=== PATIENT | female | born 1995 | race Caucasian/White ===

== ENCOUNTER 2022-06-01 14:21 | Inpatient (IN) | payer BC, OTHER, SELFPAY ==
[2022-06-01] VITALS (91 sets, daily range): BP systolic 104–159; BP diastolic 53–119; PULSE 69–132; TEMP 36.2–36.7; O2SAT 97–100; BMI 34.8
--- OUTSIDE RECORDS SUMMARY | 2022-06-01 14:48 | XMS_ITS ---
Author Name Filler Shredder Helper Address [address] [place] [address] Phone Organization [facility] Address [address] [place] [address] Phone Care Team Providers Care Coping Machine Assembler Name Role Phone JIMI WADE, KRISTINE Juarez Unavailable [phone] CJ WADE, KRISTA Wade Primary Care Provider [phone] Problems Includes: Active, inactive, and resolved Problems All Visits Onset Date - Time Resolved Date - Time Provider Condition Status Depression 08/15/2019 - 12:00AM PERLA MARTINEZ NP- Active Plan of Treatment Findings Encounter Date Ordered Clinical summary pro vided to patient WELL WOMAN - ESTABLISHED PT with PERLA MARTINEZ NP-BC 12/31/2020 Ordered Clinical summary pro vided to patient TUNNEL HEADING SUPERVISOR EXAM with PERLA MARTINEZ WHNP-BC 08/15/2019 Ordered Clinical summary pro vided to patient TUNNEL HEADING SUPERVISOR EXAM with PERLA MARTINEZ WHNP-BC 07/04/2018 Ordered Clinical summary pro vided to patient TUNNEL HEADING SUPERVISOR EXAM with PERLA MARTINEZ WHNP-BC 05/07/2017 Ordered Clinical summary pro vided to patient ANNUAL WELL WOMEN EXAM with PERLA MARTINEZ WHNP-BC 05/04/2016 Ordered Clinical summary pro vided to patient TUNNEL HEADING SUPERVISOR EXAM with PERLA MARTINEZ NP-BC 03/31/2015 O
--- OUTSIDE RECORDS SUMMARY | 2022-06-01 14:48 | XMS_ITS | Clinical Summary ---
Author Name Hand Cell Tuber Address [address] [place] [address] Phone Organization [facility] Address [address] [place] [address] Phone Care Team Providers Care Master Data Analyst Name Role Phone JIMI WADE, KRISTINE C Unavailable [phone] CJ WADE, KRISTA Wade Primary Care Provider [phone] Reason for Visit and Chief Complaint gynecologic annual exam - The Chief Complaint is: Annual just ctng Problems Includes: Problems addressed during this encounter and other active Problems All Visits Onset Date - Time Resolved Date - Time Provider Condition Status Depression 08/15/2019 - 12:00AM PERLA MARTINEZ [facility] Active Plan of Treatment - Clinical summary provided to patient Assessments Includes: Assessments from this encounter - NORMAL FEMALE EXAM Instructions Includes: Instructions from this encounter Instructions to patient Instructions for patient : B reast Self Exam discussed Safe sex counseling Gardasil information given a nd series encouraged Series completed! Education and Decision Aids were provided during visit for: Patient Education: Daily lynette cium and vitamin D Patient Education: weight be aring exercise Medical Equi
--- OUTSIDE RECORDS SUMMARY | 2022-06-01 14:48 | XMS_ITS | Clinical Summary ---
Author Name Junior Mechanical Engineer Address [address] [place] [address] Phone Organization [facility] Address [address] [place] [address] Phone Care Team Providers Care Combine Operator Name Role Phone JIMI WADE, KRISTINE Juarez Unavailable [phone] CJ WADE, KRISTA Wade Primary Care Provider [phone] Reason for Visit and Chief Complaint * PHONE CALL Problems Includes: Problems addressed during this encounter and other active Problems All Visits Onset Date - Time Resolved Date - Time Provider Condition Status Depression 08/15/2019 - 12:00AM PERLA MARTINEZ [facility] Active Plan of Treatment No Plan of Treatment Recorded Assessments Includes: Assessments from this encounter No Assessments Recorded Medical Equipment - Implanted Devices Includes: Current Devices No Medical Equipment Recorded Medications Includes: Medications discussed during this encounter and other current Medications Current Medications (continue as prescribed) Sertraline HCl 25 MG Oral Tablet 12/31/2020 Provider : Diagnosis: Xanax 0.25MG Oral Tablet 07/04/2018 Provider: Diagnosis: Past Medications on file
--- OUTSIDE RECORDS SUMMARY | 2022-06-01 14:48 | XMS_ITS ---
Care Plan - [facility] Created on: June 01, 2022 CODY DONNELLY : 1995 Sex: Female Author Name Flavor Room Worker Address [address] [place] [address] Phone Organization [facility] Address [address] [place] [address] Phone Care Team Providers Care Supervisor Cd Area Name Role Phone JIMI WADE, KRISTINE C Unavailable [phone] CJ WADE, KRISTA A Primary Care Provider [phone]
--- OUTSIDE RECORDS SUMMARY | 2022-06-01 14:48 | XMS_ITS | Clinical Summary ---
Author Name Trade Economist Address [address] [place] [address] Phone Organization [facility] Address [address] [place] [address] Phone Care Team Providers Care Manager Paper Name Role Phone JIMI WADE, KRISTINE C Unavailable [phone] CJ WADE, KRISTA Wade Primary Care Provider [phone] Reason for Visit and Chief Complaint The Chief Complaint is: WWE, pt stopped control 8 months ag. Pt states for the past 4 months during her ovulation she has really sharp pain in her pelvic area and lower abdominal area of both sides. Pt has low back pain also and says the pain stays until her next cycle. No new partners Problems Includes: Problems addressed during this encounter and other active Problems All Visits Onset Date - Time Resolved Date - Time Provider Condition Status Depression 08/15/2019 - 12:00AM PERLA MARTINEZ [facility]- Active Plan of Treatment - Clinical summary provided to patient Assessments Includes: Assessments from this encounter - NORMAL FEMALE EXAM [Z01.419 - Encounter for gynecological examination (general) (routine) without abnormal findings] - Female pelvic pain [R10.2 - Pelvic and perineal pain] Instructions Includes: Instructions from this encounter Instructions to patient Instructions for patient : B reast Self Exam discussed Return to the clinic if cond ition worsens or new symptoms arise Lose
--- OUTSIDE RECORDS SUMMARY | 2022-06-01 14:48 | XMS_ITS | Clinical Summary ---
Author Name Logistics Service Representative Address [address] [place] [address] Phone Organization [facility] Address [address] [place] [address] Phone Care Team Providers Care Community Health Navigator Name Role Phone JIMI WADE, KRISTINE C Unavailable [phone] CJ WADE, KRISTA Wade Primary Care Provider [phone] Reason for Visit and Chief Complaint SENIOR ENERGY TRADER EXAM Problems Includes: Problems addressed during this encounter and other active Problems All Visits Onset Date - Time Resolved Date - Time Provider Condition Status Depression 08/15/2019 - 12:00AM PERLA MARTINEZ [facility] Active Plan of Treatment No Plan of Treatment Recorded Assessments Includes: Assessments from this encounter No Assessments Recorded Medical Equipment - Implanted Devices Includes: Current Devices No Medical Equipment Recorded Medications Includes: Medications discussed during this encounter and other current Medications Current Medications (continue as prescribed) Sertraline HCl 25 MG Oral Tablet 12/31/2020 Provider : Diagnosis: Xanax 0.25MG Oral Tablet 07/04/2018 Provider: Diagnosis: Medications Administered Includes: Administered Medications from thi
[2022-06-01 15:19] LABS: Basophils Percent Auto 0.3 % (0.2-1.2); Eosinophils Absolute Auto 0.1 K/mm3 (0-0.3); Eosinophils Percent Auto 0.4 % (0-4.4); Hematocrit 33.9 % (37.0-47.0); Hemoglobin 11.3 g/dL (12.0-15.0); Immature Granulocyte Absolute 0.04 K/mm3 (0.00-0.031); Immature Granulocyte Percent A 0.3 % (0-0.5); Lymphocytes Absolute Auto 2.86 K/mm3 (0.9-3.2); Lymphocytes Percent Auto 24.3 % (18.3-44.2); Mean Corpuscular HGB Conc 33.3 g/dl (32-36); Mean Corpuscular Hemoglobin 28.6 pg (26-34); Mean Corpuscular Volume 85.8 fl (80-100); Mean Platelet Volume 11.7 fl (7.4-10.4); Monocytes Absolute Auto 0.8 K/mm3 (0.1-0.6); Monocytes Percent Auto 6.9 % (2.6-8.5); Neutrophils Percent Auto 67.8 % (45.5-73.1); Platelet Count Result 237 k/mm3 (150-375); Red Blood Count 3.95 M/mm3 (4.2-5.4); Red Cell Distribution Width 13.7 % (11.5-14.5); White Blood Count 11.8 K/mm3 (4.5-10.0)
[2022-06-01] MEDS: LACTATED RINGERS 1,000 ML 125 ML IV CONT ×2 (15:25→19:42)
[2022-06-01] MEDS: OXYTOCIN 30 UNITS/NS 500 ML 30 UNITS/500 ML BAG 6 UNITS IV CONT (15:25)
--- NOTE | 2022-06-01 15:33 | LDADM ---
This patient, Silvestre Fisher, was admitted to Labor/Delivery/Recovery 106 on 06/01/22 at 14:21. Plans for labor, pain management and were discussed with patient. Patient/family oriented to hospital policies and general routines including ID bracelet, bed and alarms, visiting hours, pain management, procedures, bathroom and other care routines, personal items, smoking policy, room service/diet and guest tray routines, security routines, and visiting hours. Patient/Family are encouraged to report perceived risks to care and to ask questions if they do not understand what they are told or what they should do. See OBIX for further documentation.
[2022-06-01 15:57] LABS: Rapid Plasma Reagin Non-Reactive (NonReactive)
--- NOTE | 2022-06-01 19:44 | WPDANESEPP ---
Anes - Eval Pre Procedure Procedure: labor epidural Date/Time: 06/01/22 19:44 Surgeon: karin Preop Diagnosis: pain during labor Pre Op Diagnosis: labor Patient Data Age: 26 Gender: F Height: 1.65 m Weight: 95 kg Last Vital Signs Temp 36.6 C 06/01/22 18:01 Pulse 74 06/01/22 19:30 BP 124/65 06/01/22 19:30 O2 Del Method Room Air 06/01/22 15:29 Allergies Allergy/AdvReac Type Severity Reaction Status Date / Time No Known Allergies Allergy Verified 06/01/22 15:40 Home Medications Medication Instructions Recorded Confirmed Type prenat.vits,lynette,qaz-recr-tmpdn 1 tablet PO DAILY 05/22/22 06/01/22 History sertraline 50 mg tablet 75 mg PO DAILY 05/22/22 06/01/22 History Laboratory Tests 06/01/22 06/01/22 06/01/22 15:13 15:13 15:13 WBC 11.8 K/mm3 H K/mm3 (4.5-10.0) RBC 3.95 M/mm3 L M/mm3 (4.2-5.4) Hgb 11.3 g/dL L g/dL (12.0-15.0) Hct 33.9 % L % (37.0-47.0) MCV 85.8 fl fl (80-100) MCH 28.6 pg pg (26-34) MCHC 33.3 g/dl g/dl (32-36) RDW 13.7 % % (11.5-14.5) Plt Count 237 k/mm3 k/mm3 (150-375) MPV 11.7 fl H fl (7.4-10.4) Immature Gran % (Auto) 0.3 % % (0-0.5) Neut % (Auto) 67.8 % % (45.5-73.1) Lymph % (Auto) 24.3 % % (18.3-44.2) Gilmer % (Auto) 6.9 % % (2.6-8.5) Eos % (Auto) 0.4 % % (0-4.4) Baso % (Auto) 0.3 % % (0.2-1.2) Lymph # (Auto) 2.86 K/mm3 K/mm3 (0.9-3.2) Gilmer # (Auto) 0.8 K/mm3 H K/mm3 (0.1-0.6) Eos # (Auto) 0.1 K/mm3 K/mm3 (0-0.3) Baso # (Auto) 0.0 K/mm3 K/mm3 (0.0-0.1) Abs Immat Gran (auto) 0.04 K/mm3 H K/mm3 (0.00-0.031) Absolute Neuts (auto) 8.0 K/mm3 H K/mm3 (1.3-6.7) Absolute Nucleated RBC 0.0 K/mm3 K/mm3 (0.0-0.012) Nucleated RBC % 0.0 % % (0.0-0.2) RPR Non-reactive (NonReactive) Blood Type A Positive Antibody Screen Negative Patient hx anesthesia problems: none Family hx anesthesia problems: none Results Review: All pre-operative results and documents have been reviewed as part of the pre-operative evaluation. [facility] Past Medical History Medical History (Updated 06/01/22 @ 19:44 by Rena Khan CRNA) Depression IUP (intrauterine ), incidental Family History Family History (Updated 05/22/22 @ 15:29 by Victoriano Osorio RN) Grandparent High cholesterol Diabetes mellitus Cancer of kidney Grandparent Alzheimer disease Social History Social History Smoking status: Never smoker Substance use: never Lack of Transportation: No Lack of Food: Never True Current Housing: I Do Not Have Housing Concerned About Future Housing: No Difficulty Paying Gas/Electric Bills: No Difficulty Paying for Meds: No Currently Unemployed: No Education: Associate Degree Difficulty w/ Childcare or Family Care: No Spiritual care concerns: No Exam Day of Procedure 06/01/22 19:44
[2022-06-02] VITALS (35 sets, daily range): BP systolic 119–163; BP diastolic 42–113; PULSE 87–158; RESP 16–18; TEMP 36.6–37.3; O2SAT 98–100
--- NOTE | 2022-06-02 01:47 | PM.OBPRVD ---
OB - Delivery Note Procedure Procedure: Induction method: None Delivery augmentation: Pitocin Delivery monitor: External FHT and Internal Uterine Route of delivery: Prior to decision for section, [facility] labor guidelines were considered and discussed with the patient and staff. Decision made to proceed with the section.: No Episiotomy description: None Laceration Description: Perineal - 1st Degree and Labial Delivery repair: vicryl Quantitative Blood Loss (ml): 175 Anesthesia type: Epidural Disposition: Floor Paulina Baby Date of : 06/02/22 Time of : 01:22 Weeks of gestation at delivery: 37 Weight (pounds): 6 Weight (ounces): 14 score one minute: 7 score five minutes: 9
[2022-06-02] MEDS: IBUPROFEN 600 MG TABLET PO ×2 (08:14→16:22)
[2022-06-02] MEDS: SERTRALINE HCL 25 MG TABLET 75 MG PO (08:15)
--- NOTE | 2022-06-02 12:55 | PC.NURSE ---
[id number] Introductions were made, then consulted with patient to assess needs related to . Mother led the conversation with her?plans to feed?her infant and the?experience so far. Resources provided for inpatient and outpatient services using a mom/baby guide. Mother voiced understanding of information and requested assistance. Mother works well with her with encouragement and education. Mother is concerned about the spitting up that her infant has had since . Encouraged understanding of the benefits of skin to skin (unwrapping and placing vertically on her chest), massage touch, responsive feeding, hand expression, how to watch for early feeding signs, frequency of feeding on demand about every 8-12 times in 24 hours (every 2-3 hours), milk production, duration of feeding, signs of adequate intake/output and how to record on the feeding sheet. After stimulating with massage touch while upright on mother's chest spit up copious amounts of fluid that was light yellow/green tinged. Mother states there had been meconium fluid at delivery. RN demonstrated caring for her in a CPR manner if has difficultly working out the fluid, wiping the mouth and using the bulb syringe. Parents were encouraged to call for assistance so staff can help when needed. After infant was relaxed on mother skin to skin, laid down to wake, then Mother demonstrated hand expression had fed infant with a spoon to encourage wakefulness to breastfeed. Once feeding cues were observed RN reviewed positioning and ear, shoulder, hip alignment, supporting the breast, asymmetrical latch (off-center), and leading with the chin with a big open side gape. latched optimally to the right breast in football position twice for a few minutes with swallowing. Education given to mother of how to visualize suck/swallow ratios and drinking at the breast. was able to maintain latch without discomfort to mother for a few minutes and swallows. Nipple care reviewed with optimal latch and good positioning. Discussed the difference of the latched effectively and non-optimally. Reviewed good handwashing when or touching the breast/nipples to prevent infection. Resources used to facilitate learning were used with the mom and baby guide. Mother voiced understanding of responsive feedings, stimulating with skin to skin, hand expressed colostrum, massage touch, talking to infant to encourage if it has been 2 -3 hours since the start of the last , to call if does not latch or there is discomfort with . Reported to the primary RN.
[2022-06-03] MEDS: ACETAMINOPHEN 325 MG TABLET 650 MG PO (03:55)
[2022-06-03] MEDS: IBUPROFEN 600 MG TABLET PO ×3 (03:55→19:25)
[2022-06-03 05:01] LABS: Hematocrit 30.8 % (37.0-47.0); Hemoglobin 10.2 g/dL (12.0-15.0)
[2022-06-03 08:00] VITALS: BP 126/75; PULSE 87; RESP 18; TEMP 36.7; O2SAT 99
[2022-06-03] MEDS: SERTRALINE HCL 25 MG TABLET 75 MG PO (08:11)
[2022-06-03] MEDS: MULTIVIT/MIN/PREN/FOL AC/IRON TABLET 1 TAB PO (08:11)
--- NOTE | 2022-06-03 11:27 | WPDANLDNPN2 ---
Anes-Prog Note L&D-Neuraxial Date/Time: 06/03/22 11:27 Patient feedback: Patient satisfied with post-operative pain management.
[2022-06-03 19:20] VITALS: BP 134/78; PULSE 97; RESP 18; TEMP 36.9
[2022-06-04] MEDS: IBUPROFEN 600 MG TABLET PO (07:32)
[2022-06-04] MEDS: SERTRALINE HCL 25 MG TABLET 75 MG PO (07:32)
[2022-06-04 08:00] VITALS: BP 127/82; PULSE 81; RESP 18; TEMP 36.7; O2SAT 99
--- NOTE | 2022-06-04 11:55 | PC.NURSE ---
Patient viewed the discharge video Mother & Baby Care, The First Two Weeks . Patient was given the opportunity and encouraged to ask questions. Patient verbalized understanding of information shared and has been given the mother/baby guide for home reference.
--- NOTE | 2022-06-04 13:19 | PM.OBPNVD ---
OB - PN: Subj Subjective Date/time seen: 06/04/22 13:19 Patient comments: no complaints, pain well controlled and tolerating diet OB - PN: Obj Data Labs 06/03/22 03:51 OB - PN A/P Plan day: 2 Plan: routine care and discharge home Time Spent With Patient Time: Total time spent is greater than 50% in coordination of care (as documented) at patient's floor/unit and/or counseling patient: Exam Const: General: comfortable and no acute distress Resp: Effort & Inspection: normal respiratory effort Auscultation: no rales, no rhonchi and no wheezes Cardio: Rate: regular rate Heart sounds: no click, no murmurs and no rubs GI: GI Palp: Yes Soft to palpation and No Tenderness to palpation present (GI) Auscultation: normal bowel sounds Extrem: General: normal to inspection, no pedal edema and no calf tenderness
--- NOTE | 2022-06-04 13:20 | PM.OBDSVD ---
DS: Admitting Diagnosis Discharge Date 06/04/22 Admitting Diagnosis term OB - DS: Summary OB Procedures : None OB Procedures Intrapartum: Spontaneous Vag Delivery OB Procedures: : None Time Spent with Patient Time attestation: Total time spent providing and/or coordinating discharge services: Discharge Plan Discharge Discharging Clinician: Gucci Gray Patient Disposition: Home, Self-Care Activity: pelvic rest Diet: regular Patient Instructions: Antibiotic Form Stand Alone Forms: General Discharge Information Follow-up/Referrals: Gucci Gray MD [Physician] - Discharge Medications: Continued sertraline 50 mg Tablet 75 mg PO DAILY #2 Tablet 1 tablet PO DAILY Date of admission: 06/01/22 14:21 Primary Care Provider: VidhyaWin Admitting Provider: Gucci Gray Attending physician on admission: Gucci Gray Condition: Stable
[2022-06-05 15:06] VITALS: BP 125/79; PULSE 89; RESP 20; TEMP 37.1; O2SAT 99
== END 2022-06-04 15:00 | disposition home or self-care (01) | DRG 807 ==
LOC: ANHLDR 14:49 → ANHOB2 06-02 04:16
PROVIDERS: Admitting Provider Obstetrics & Gynecology; PCP Family Medicine; Visit Provider Obstetrics & Gynecology
DX: O77.0 Labor and delivery complicated by meconium in amniotic fluid (principal); Z37.0 Single live birth; Z3A.37 37 weeks gestation of pregnancy; O70.0 First degree perineal laceration during delivery; O99.344 Other mental disorders complicating childbirth; F32.A Depression, unspecified; F41.9 Anxiety disorder, unspecified
CPT/HCPCS: 36415; 84112; 85014; 85018; 85025; 86592; 86850; 86900; 86901; A9270; J2590; J2795; J7120

== ENCOUNTER 2022-12-08 13:22 | Outpatient (CLI) | payer BC, OTHER, SELFPAY ==
--- NOTE | ~2022-12-08 | US_ITS ---
EXAMINATION: US abdomen complete DATE: 12/08/2022 14:15 INDICATION: Upper abdominal pain, unspecified. TECHNIQUE: Multiple grayscale and Doppler ultrasound images of the abdomen were obtained. COMPARISON: None FINDINGS: The visualized portions of the head, body, and tail of the pancreas are normal. The liver i s normal without focal lesion. There is normal flow in main portal vein. The gallbladder is normal in size. No gallstones or gallbladder wall thickening. There is no sonographic Contreras sign. The common duct is normal and measures 4 mm. The kidneys are normal in size. There is a 10 mm cyst in left kidne y. Abdominal aorta is normal in caliber. Inferior vena cava is normal. The spleen is normal in size. IMPRESSION: 1. No etiology for the patient's symptoms. Reviewed, dictated and finalized at location A.
== END 2022-12-08 13:23 | disposition home or self-care (01) ==
PROVIDERS: PCP Family Medicine; Visit Provider Nurse Practitioner Family
DX: R10.10 Upper abdominal pain, unspecified (principal)
CPT/HCPCS: 76700